=== PATIENT | female | born 1940 | race Hispanic/Latino ===

== ENCOUNTER 2017-08-24 09:59 | Outpatient (CLI) | payer MEDICARE ==
--- NOTE | 2017-08-24 15:14 | Mammography Report ---
BONE DEXA:08/24/17 09:59:00 CLINICAL: Postmenopausal. No comparison. TECHNIQUE: Two site bone DEXA performed on an Hologic scanner. FINDINGS: The average BMD of the lumbar spine L1-L3 is 0.895g/cm squared with a T-score of -1.1 and a Z-score of +1.2. The L4 vertebra was excluded as an outlier because of endplate sclerosis at L4-5. The average BMD of the left hip is 0.633g/cm squared with a T-score of -2.5 and a Z-score of -0.8. IMPRESSION: 1. WHO classification: Osteopenia with increased fracture risk based on lumbar spine measurements. 2. WHO classification: Osteoporosis with high fracture risk based on left hip measurements. RECOMMENDATION: Clinical correlation and routine screening. DEFINITIONS: BMD = Bone Mineral Density T-score = BMD related to mean peak bone mass of young adult (mean expressed in Standard Deviation) Z-score = Age matched BMD expressed in SD World Health Organization (WHO) Diagnostic Criteria Normal T-score > -1 SD Osteopenia T-score between -1 and -2.4 SD Osteoporosis T-score -2.5 SD or below NOTE: BMD is not the only risk factor for fracture. One should also consider factors such as the patient's age, risk of falling, previous osteoporotic fracture, family history of osteoporotic fractures, current smoker, and low body weight. Z-scores are not calculated if >80 years of age.
== END 2017-08-24 10:00 | disposition home or self-care (01) ==
LOC: MAMMO 09:59
PROVIDERS: ATTEND Physical Medicine & Rehabilitation
DX: M81.0 Age-related osteoporosis without current pathological fracture (principal); M85.88 Other specified disorders of bone density and structure, other site; M48.48XA Fatigue fracture of vertebra, sacral and sacrococcygeal region, initial encounter for fracture; Z78.0 Asymptomatic menopausal state
CPT/HCPCS: 77080

== ENCOUNTER 2018-09-09 18:18 | Emergency (ER) | payer MEDICARE ==
--- NOTE | 2018-09-09 19:16 | Emergency Department Report ---
HPI - General Chief Complaint: Dizziness Time Seen by Provider: 09/09/18 18:58 - HPI HPI: 78-year-old female presents to the emergency department from home with complaint of some hallucinations and some dizziness. The patient was given one extra dose of her Wellbutrin 150 mg on , 2 days ago. She did not take any of this medication yesterday or today but says that she's been having some hallucinations since that time. The patient says that she saw a cat in her house and she does not own any. She also says that there've been one or 2 episodes where she thought bugs flying out of her mouth. Patient has some dizziness when she is standing and/or ambulating. Otherwise she denies any headache, vision change, slurred speech or any other neurological deficits. She has a past medical history of COPD, hypertension. She has not taken anything for her symptoms prior to presentation. She is a tobacco smoker but denies any illicit drug use. ED Past Medical Hx - Past Medical History Hx Hypertension: Yes Hx Deep Vein Thrombosis: Yes (w/stents to right leg) Hx GERD: Yes Hx COPD: Yes Additional medical history: Hernia - Social History Smoking Status: Unknown if ever smoked - Medications Home Medications: Home Medications Medication Instructions Recorded Confirmed Last Taken Type Acetaminophen/Codeine [Tylenol #3] 1 tab PO Q6H PRN #10 tab 05/20/16 Unknown Rx Meclizine [Antivert] 25 mg PO TID PRN #20 tablet 05/20/16 Unknown Rx Metoclopramide HCl [Reglan TAB] 5 mg PO Q8HR PRN #15 tablet 05/20/16 Unknown Rx Docusate Sodium [Colace] 100 mg PO BID PRN #20 capsule 09/09/18 Unknown Rx Magnesium Citrate [Citrate of 300 ml PO NOW #1 bottle 09/09/18 Unknown Rx Magnesia] ED Review of Systems ROS: Stated complaint: HALLUCINATIONS/DIZZINESS Other details as noted in HPI Comment: All other systems reviewed and negative Constitutional: denies: chills, fever Eyes: denies: eye pain, vision change ENT: denies: ear pain, throat pain Respiratory: denies: cough, shortness of breath Cardiovascular: denies: chest pain, palpitations Gastrointestinal: denies: abdominal pain, vomiting Genitourinary: denies: dysuria, discharge Musculoskeletal: denies: back pain, arthralgia Skin: denies: rash, lesions Neurological: other (dizziness). denies: headache Psychiatric: visual hallucinations. denies: auditory hallucinations, homicidal thoughts, suicidal thoughts Physical Exam - Physical Exam Vital Signs: Vital Signs 09/09/18 18:33 Temperature 97.6 F Pulse Rate 81 Blood Pressure 154/78 O2 Sat by Pulse 98 Oximetry Physical Exam: GENERAL: The patient is well-developed well-nourished. HEENT: Normocephalic. Atraumatic. Patient has moist mucous membranes. EYES: Extraocular motions are intact. Pupils are equal and reactive to light bilaterally. NECK: Supple. Trachea is midline. CHEST/LUNGS: Clear to auscultation. There is no respiratory distress noted. HEART/CARDIOVASCULAR: Regular. There is no tachycardia. There is no obvious murmur. ABDOMEN: Abdomen is soft, nontender. Patient has normal bowel sounds. There is no abdominal distention. SKIN: Skin is warm and dry. NEURO: The patient is awake, alert, and oriented. The patient is cooperative. The patient has no focal neurologic deficits. The patient has normal speech. MUSCULOSKELETAL: There is no tenderness or deformity. There is no evidence of acute injury. ED Course Vital Signs 09/09/18 18:33 Temperature 97.6 F Pulse Rate 81 Blood Pressure 154/78 O2 Sat by Pulse 98 Oximetry ED Medical Decision Making - Lab Data Result diagrams: 09/09/18 19:51 09/09/18 19:51 - EKG Data -: EKG Interpreted by Me EKG shows normal: sinus rhythm, axis (left axis deviation), intervals, QRS complexes (RBBB), ST-T waves Rate: normal - EKG Data When compared to previous EKG there are: no significant change Interpretation: unchanged when compared t (05/20/16) - Radiology Data Radiology results: report reviewed, image reviewed interpreted by me: Abdominal x-ray shows a moderate amount of stool. No signs of any obstruction. PROCEDURE: CT head without contrast. TECHNIQUE: Computerized tomography of the head was performed without contrast material. HISTORY: Dizziness. COMPARISON: CT head 05/20/2016. FINDINGS: The ventricles are normal in size. The mcintyre matter and white matter appear normal. There are no mass lesions. There is no intracranial hemorrhage. The calvarium appears intact. The mastoid air cells and visualized paranasal sinuses are clear. IMPRESSION: Normal study. Transcribed By: HONEY Dictated By: REYES AQUINO MD Electronically Authenticated By: REYES AQUINO MD Signed Date/Time: 09/09/182004 - Medical Decision Making This patient presents to the emergency department for a few different complaints. Her main issue is that she has been having a few days of some visual hallucinations. The patient says that she saw a cat inside of her home except for she does not own a cat and does not actually think there was one in the house. She also was having some hallucinations that bugs coming out of her mouth. While she has been in the emergency department, she has been awake, alert, appropriate. There've been no signs of any responding to internal stimuli. She is not complaining of any current hallucinations. She does not have any focal, motor or sensory deficits in her cranial nerves have been intact. CT scan of the head did not show any bleed, shift, mass, ischemia or any other acute process. Patient's labs have been unremarkable including a CBC, metabolic panel, TSH, troponin. EKG did not show any signs of ST elevation MD, prolonged intervals or dysrhythmia. Patient was seen by the psychiatric animation artist who agrees that the patient does not appear to meet criteria to be made a 1013 prior inpatient psychiatric treatment. Based on the fact that the patient has been taking extra Wellbutrin, off label from her smoking cessation, it is possible that the hallucinations are a side effect or adverse effect of this medication. It does not appear to be secondary to any psychosis. She denies any suicidal or homicidal ideations. The patient also complained of having constipation without a bowel movement for the past week. She has not tried any stool softeners or laxatives since leaving the other hospital. Her abdomen is soft and nontender to palpation and nondistended. Abdominal x-ray shows a moderate amount of stool throughout the intestines but no signs of any obstruction. Patient's vital signs and stable throughout her ED course. She was seen ambulatory in the emergency department and appeared stable. Follow-up is reasons the patient appears safe for discharge home. She is instructed to follow up with her primary care physician and vascular surgeon. She has been instructed to go down to the normal once a day dose of Wellbutrin 150 mg and follow-up with her physicians for any further titration. She will return to the ER with any worsening of her symptoms or any acute distress. - Differential Diagnosis psychosis, constipation, medication adverse affects, dysrythmia Critical Care Time: No Critical care attestation.: If time is entered above; I have spent that time in minutes in the direct care of this critically ill patient, excluding procedure time. ED Disposition Clinical Impression: Hallucinations, visual Constipation Qualifiers: Constipation type: unspecified constipation type Qualified Code(s): K59.00 - Constipation, unspecified Disposition: TO HOME OR SELFCARE Is pt being admited?: No Condition: Stable Instructions: Constipation (ED), High Fiber Diet (ED) Additional Instructions: Go back down to 150 mg of Wellbutrin, ONCE PER DAY. Increase your fluid intake. Take the stool softeners as needed for constipation. Follow up with your primary care provider and vascular doctor regarding any further changes to your medications. Return to the emergency department immediately with any worsening of your symptoms or any acute distress. Prescriptions: Docusate Sodium [Colace] 100 mg PO BID PRN #20 capsule PRN Reason: Constipation Magnesium Citrate [Citrate of Magnesia] 300 ml PO NOW #1 bottle Referrals: EDER MONTES MD [Primary Care Provider] - 2-3 Days
--- NOTE | 2018-09-09 20:05 | Cat Scan Report ---
FINAL REPORT PROCEDURE: CT head without contrast. TECHNIQUE: Computerized tomography of the head was performed without contrast material. HISTORY: Dizziness. COMPARISON: CT head 05/20/2016. FINDINGS: The ventricles are normal in size. The mcintyre matter and white matter appear normal. There are no mass lesions. There is no intracranial hemorrhage. The calvarium appears intact. The mastoid air cells and visualized paranasal sinuses are clear. IMPRESSION: Normal study.
[2018-09-09 20:08] LABS: Basophils # (Auto) 0.1 K/mm3 (0.0-0.1); Basophils % (Auto) 0.9 % (0.0-1.8); Eosinophils # (Auto) 0.2 K/mm3 (0.0-0.4); Eosinophils % (Auto) 3.2 % (0.0-4.3); Hematocrit 41.3 % (30.3-42.9); Hemoglobin 13.9 gm/dl (10.1-14.3); Lymphocytes # (Auto) 1.2 K/mm3 (1.2-5.4); Lymphocytes % (Auto) 16.6 % (13.4-35.0); Mean Corpuscular HGB Conc 34 % (30-34); Mean Corpuscular Volume 94 fl (79-97); Monocytes # (Auto) 0.8 K/mm3 (0.0-0.8); Monocytes % (Auto) 10.3 % (0.0-7.3); Platelet Count 219 K/mm3 (140-440); Red Cell Distribution Width 14.4 % (13.2-15.2)
[2018-09-09 20:18] LABS: INR 0.97 (0.87-1.13); Partial Thromboplastin Time 29.1 Sec. (24.2-36.6)
[2018-09-09 20:26] LABS: Alanine Aminotransferase 25 units/L (7-56); Albumin 3.9 g/dL (3.9-5); BUN/Creatinine Ratio 11; Blood Urea Nitrogen 11 mg/dL (7-17); Hemolysis Index 9
--- NOTE | 2018-09-09 22:57 | XRay Report ---
FINAL REPORT EXAM: XR ABDOMEN 2V HISTORY: constipation TECHNIQUE: Supine and upright abdomen PRIORS: None. FINDINGS: Moderate amount of stool and gas present within the colon. No evidence of colonic or small bowel dila tation. No signs of free air. No abnormal calcifications are identified. IMPRESSION: Nonobstructive bowel gas pattern. No acute abnormality seen.
[2018-09-09 23:14] VITALS: BP 150/78
== END 2018-09-09 23:31 | disposition home or self-care (01) ==
LOC: ED 18:18
DX: R44.1 Visual hallucinations (principal); K59.00 Constipation, unspecified; I10 Essential (primary) hypertension; K21.9 Gastro-esophageal reflux disease without esophagitis; J44.9 Chronic obstructive pulmonary disease, unspecified; Z86.718 Personal history of other venous thrombosis and embolism
CPT/HCPCS: 36415; 70450; 74019; 80053; 84443; 84484; 85025; 85610; 85730; 93005; 93010